=== PATIENT | female | born 1990 | race Caucasian/White ===

== ENCOUNTER → 2024-03-23 | Outpatient (CLI) | payer BC ==
[~2024-03-23] MED LIST: BCP; HYDACE5 PO; Macrobid 100 M100 MG PO; ONDA4ODT MM; PROM25 PO; Phentermine HCl30 MG; RXHYDACE PO; SULTRIDS PO; [UNRECOGNIZED DRUG - OTHER]
[2024-03-23 14:08] LABS: BASOPHILS ABSOLUTE AUTO 0.06 K/mm3 (0.00-0.23); BASOPHILS PERCENT AUTO 1 % (0-2); EOSINOPHILS PERCENT AUTO 2 % (0-6); Hematocrit 37.7 % (33.0-51.0); IMMATURE GRAN ABSOLUTE AUTO 0.04 K/mm3 (0.00-0.10); IMMATURE GRAN PERCENT AUTO 1 % (0-1); LYMPHOCYTES ABSOLUTE AUTO 3.23 K/mm3 (0.84-5.20); LYMPHOCYTES PERCENT AUTO 38 % (21-46); MONOCYTES ABSOLUTE AUTO 0.78 K/mm3 (0.16-1.47); MONOCYTES PERCENT AUTO 9 % (4-13); Mean Corpuscular HGB 30.3 pg (26.0-34.0); Mean Corpuscular HGB Conc 34.5 g/dL (31.5-36.5); Mean Corpuscular Volume 88 fL (80-100); Mean Platelet Volume 8.7 fL (9.1-12.4); NEUTROPHILS ABSOLUTE AUTO 4.15 K/mm3 (1.96-9.15); NEUTROPHILS PERCENT AUTO 49 % (41-73); Platelet Count 339 K/mm3 (150-400); RDW Coefficient Variation 12.3 % (11.7-14.2); Red Blood Cell Count 4.29 M/mm3 (3.80-5.20); White Blood Cell Count 8.46 K/mm3 (4.00-11.30)
[2024-03-23 14:25] LABS: Albumin/Globulin Ratio 1.1 (0.8-1.8); Bilirubin, Total 0.2 mg/dL (0.1-1.0); Calcium, Blood 9.6 mg/dL (8.5-10.1); Creatinine, Blood 0.93 mg/dL (0.40-1.00); Globulin, Blood 3.6 g/dL (2.2-4.0); Potassium, Blood 3.5 mmol/L (3.5-5.5); Total Protein, Blood 7.6 g/dL (6.4-8.2)
== END ==
LOC: LAB 14:03 → LAB SHORT 14:03
PROVIDERS: Physician Assistant
DX: R10.32 Left lower quadrant pain (principal)
CPT/HCPCS: 80053; 83690; 85025

== ENCOUNTER 2024-04-11 06:06 | Observation (INO) | payer BC ==
[2024-04-11] VITALS (17 sets, daily range): BP systolic 112–143; BP diastolic 71–90
[~2024-04-11] VITALS: Ht 157.5 cm; Wt 75.8 kg
[2024-04-11] MEDS ORDERED: Ondansetron HCl 2 MG / ML 2ML Vial IV PRN ×2 (06:20→08:40)
[2024-04-11 06:32] LABS: BASOPHILS ABSOLUTE AUTO 0.08 K/mm3 (0.00-0.23); BASOPHILS PERCENT AUTO 1 % (0-2); EOSINOPHILS ABSOLUTE AUTO 0.29 K/mm3 (0.00-0.68); EOSINOPHILS PERCENT AUTO 2 % (0-6); Hemoglobin 13.3 g/dL (11.5-16.0); IMMATURE GRAN ABSOLUTE AUTO 0.06 K/mm3 (0.00-0.10); IMMATURE GRAN PERCENT AUTO 0 % (0-1); LYMPHOCYTES ABSOLUTE AUTO 2.87 K/mm3 (0.84-5.20); LYMPHOCYTES PERCENT AUTO 21 % (21-46); MONOCYTES ABSOLUTE AUTO 0.86 K/mm3 (0.16-1.47); MONOCYTES PERCENT AUTO 6 % (4-13); Mean Corpuscular HGB 30.8 pg (26.0-34.0); Mean Corpuscular Volume 88 fL (80-100); Mean Platelet Volume 8.5 fL (9.1-12.4); NEUTROPHILS ABSOLUTE AUTO 9.58 K/mm3 (1.96-9.15); NEUTROPHILS PERCENT AUTO 70 % (41-73); Platelet Count 365 K/mm3 (150-400); RDW Standard Deviation 38.4 fL (35.1-46.3); Red Blood Cell Count 4.32 M/mm3 (3.80-5.20); White Blood Cell Count 13.74 K/mm3 (4.00-11.30)
[2024-04-11 06:51] LABS: Albumin, Blood 4.1 g/dL (3.4-5.0); Bilirubin, Total 0.4 mg/dL (0.1-1.0); Bun/Creatinine Ratio 25.6 (12.0-20.0); Calcium, Blood 10.9 mg/dL (8.5-10.1); Creatinine, Blood 0.78 mg/dL (0.40-1.00); Potassium, Blood 3.7 mmol/L (3.5-5.5); Total Protein, Blood 8.1 g/dL (6.4-8.2)
[2024-04-11] MEDS ORDERED: Morphine Sulfate 4 MG/1 ML Injection IV ONE (07:00)
[2024-04-11 07:21] LABS: Source, Urine Clean Catch
[2024-04-11 07:30] LABS: Bilirubin, Urine Neg (Neg); Blood, Urine 2+ (Neg); Glucose Qualitative, Urine Neg (Neg); Ketones, Urine Neg (Neg); Leukocyte Esterase, Urine Neg (Neg); Nitrite, Urine Neg (Neg); Protein, Urine Neg (Neg); Urobilinogen, Urine NORM (Normal)
[2024-04-11 07:57] LABS: Appearance, Urine Hazy (Clear); Bacteria Few /hpf; Color, Urine Yellow (P-Yellow); Squamous Epithelial Cells Few /hpf (Few); White Blood Cells, Urine 0-2 /hpf (0-5)
[2024-04-11] MEDS ORDERED: FLU VACC TS2024-25(6MOS UP)/PF 45 MCG/0.5 ML SYRINGE IM PRN (08:40)
[2024-04-11] MEDS ORDERED: Lactated Ringer's 1,000 ML IV SCH ×2 (08:40→14:45)
[2024-04-11] MEDS ORDERED: HYDROcodone 5-APAP 325 TAB PO PRN (08:40)
[2024-04-11] MEDS ORDERED: Ampicillin Sod/Sulbactam Sod 3 GM in NS 100 ML IV SCH (08:44)
[2024-04-11] MEDS ORDERED: FentaNYL Citrate 50 MCG/ML 2 ML Injection IV PRN (08:45)
--- NOTE | 2024-04-11 12:27 | NUR ---
History, Chart, Medications and Allergies reviewed before start of procedure. Pre-Op teaching done. Pt verbalizes understanding. PT BELONGINGS BAG PLACED UNDER GURNEY. PTS AT BS.
[2024-04-11] MEDS ORDERED: propofoL 20 ML IV ONE (12:48)
[2024-04-11] MEDS ORDERED: FentaNYL Citrate 50 MCG/ML 2 ML Injection ONE ×2 (12:50→15:04)
[2024-04-11] MEDS ORDERED: Bupivacaine 0.5% HCl 5 MG/ML 30MLVIAL ONE (13:09)
[2024-04-11] MEDS ORDERED: Rocuronium Bromide 10 MG/ML 5ML Injection IV ONE ×2 (13:21→13:45)
[2024-04-11] MEDS ORDERED: HYDROmorphone HCl/Pf 1MG SYR ONE (14:09)
[2024-04-11] MEDS ORDERED: Sugammadex Sodium 200 MG/2ML SDV (100 MG/ML) ONE (14:14)
--- NOTE | 2024-04-11 16:16 | NUR ---
arrival. pt arrived to unit s/p lap lia. pt groggy but reports pain tolerable, will wake and answer questions. lap sites x4 cdi with steri strips. denies nausea at this time. family at bedside. pt has call light in hand.
[2024-04-11] MEDS ORDERED: Morphine Sulfate 4 MG/1 ML Injection IV PRN (17:25)
--- NOTE | 2024-04-11 18:02 | NUR ---
NO ACUTE CHANGES SINCE ARRIVAL TO UNIT PT SWITCHED TO MORPHINE FROM FENTANYL SHE REPORTED FEELING NAUSEOUS AFTER FENTANYL. PT TOLERATING SMALL AMOUNTS OF REGULAR DIET AT THIS TIME. REMAINS VERY TIRED.
[2024-04-12 00:13] VITALS: BP 105/67
[2024-04-12 05:03] VITALS: BP 112/71
--- NOTE | 2024-04-12 05:19 | NUR ---
SHIFT SUMMARY AOX4. VSS. POD1-LAP MARLENA. x4 LAP SITES W/STERI STRIPS, C/D/I. REPORTS PAIN TO RUQ ABD TO SHOULDERS, MEDICATED 2x W/1MG IV MORPHINE-PT ABLE TO REST W/EYES CLOSED AFTER. DENIES N/V T/O SHIFT. HYPOACTIVE BT. REPORTS PASSING FLATUS. UP SBY ASSIST TO VOID. CALL LIGHT IN REACH.
[2024-04-12 07:19] VITALS: BP 105/69
[2024-04-12] MEDS ORDERED: Simethicone 80 MG Chew PO PRN (12:35)
[2024-04-12 15:12] VITALS: BP 112/74
[2024-04-12] MEDS ORDERED: HYDR1TAB94 PO (15:28)
--- NOTE | 2024-04-12 16:06 | NUR ---
DISCHARGE SUMMARY POD1 LAP MARLENA, A/OX4, VSS, TOLERATING PO, PAIN WELL MANAGED, INDEPENDENT IN THE ROOM, LAP SITES C/D/I WITH STERI STRIPS IN PLACE, ABD SOFT BUT TENDER WITH PALPATION AND NOT DISTENDED. DISCUSSED DISCHARGE INSTRUCTIONS INCLUDING HOME CARE, MEDICATIONS, AND FOLLOW UP APPOINTMENTS.
== END 2024-04-12 16:08 | disposition home or self-care (01) ==
LOC: ER 06:06 → SURS 06:07
PROVIDERS: Emergency Medicine; ADMIT Surgery
PROC: 0FT44ZZ Resection of Gallbladder, Percutaneous Endoscopic Approach (ICD-10-PCS; principal; 2024-04-11 12:00)
DX: K80.12 Calculus of gallbladder with acute and chronic cholecystitis without obstruction (principal); F32.A Depression, unspecified
CPT/HCPCS: 76705; 80053; 81001; 83690; 85025; 87086; 88304; 96365; 96375; 99285-25; A9270; G0378; J0295; J1171; J2270; J2405; J2704; J3010; J7120

== ENCOUNTER 2024-04-16 08:17 | Inpatient (IN) | payer BC ==
[~2024-04-16] VITALS: Ht 167.6 cm; Wt 81.7 kg
[~2024-04-16 08:17] MED LIST changes: +HYDR1TAB94 PO
[2024-04-16] MEDS ORDERED: Ondansetron HCl 2 MG / ML 2ML Vial IV ONE (08:55)
[2024-04-16 09:50] LABS: BASOPHILS ABSOLUTE AUTO 0.04 K/mm3 (0.00-0.23); BASOPHILS PERCENT AUTO 1 % (0-2); EOSINOPHILS ABSOLUTE AUTO 0.22 K/mm3 (0.00-0.68); EOSINOPHILS PERCENT AUTO 3 % (0-6); Hemoglobin 14.5 g/dL (11.5-16.0); IMMATURE GRAN ABSOLUTE AUTO 0.05 K/mm3 (0.00-0.10); IMMATURE GRAN PERCENT AUTO 1 % (0-1); LYMPHOCYTES ABSOLUTE AUTO 1.12 K/mm3 (0.84-5.20); LYMPHOCYTES PERCENT AUTO 14 % (21-46); MONOCYTES ABSOLUTE AUTO 0.72 K/mm3 (0.16-1.47); MONOCYTES PERCENT AUTO 9 % (4-13); Mean Corpuscular HGB 31.3 pg (26.0-34.0); Mean Corpuscular HGB Conc 36.3 g/dL (31.5-36.5); Mean Corpuscular Volume 86 fL (80-100); NEUTROPHILS ABSOLUTE AUTO 5.92 K/mm3 (1.96-9.15); NEUTROPHILS PERCENT AUTO 73 % (41-73); Platelet Count 344 K/mm3 (150-400); RDW Coefficient Variation 12.5 % (11.7-14.2); RDW Standard Deviation 38.5 fL (35.1-46.3); Red Blood Cell Count 4.63 M/mm3 (3.80-5.20); White Blood Cell Count 8.07 K/mm3 (4.00-11.30)
[2024-04-16 09:51] LABS: Albumin, Blood 4.2 g/dL (3.4-5.0); Bilirubin, Total 2.3 mg/dL (0.1-1.0); Bun/Creatinine Ratio 21.7 (12.0-20.0); Calcium, Blood 10.4 mg/dL (8.5-10.1); Creatinine, Blood 0.74 mg/dL (0.40-1.00); Globulin, Blood 4.2 g/dL (2.2-4.0); Potassium, Blood 3.9 mmol/L (3.5-5.5); Total Protein, Blood 8.4 g/dL (6.4-8.2)
[2024-04-16] MEDS ORDERED: Piperacillin/Tazobactam Sod 4.5 GM in NS 100 ML IV ONE (12:20)
[2024-04-16] MEDS ORDERED: HYDROmorphone HCl/Pf 1MG SYR IV ONE (12:55)
[2024-04-16 13:28] LABS: Source, Urine Clean Catch
[2024-04-16 13:34] LABS: Appearance, Urine Clear (Clear); Bilirubin, Urine Neg (Neg); Blood, Urine Neg (Neg); Color, Urine Yellow (P-Yellow); Glucose Qualitative, Urine Neg (Neg); Ketones, Urine Neg (Neg); Leukocyte Esterase, Urine Neg (Neg); Nitrite, Urine Neg (Neg); Protein, Urine 1+ (Neg); Urobilinogen, Urine 1+ (Normal)
[2024-04-16] MEDS ORDERED: Ondansetron HCl 2 MG / ML 2ML Vial IV PRN (13:45)
[2024-04-16] MEDS ORDERED: HYDROmorphone HCl/Pf 1MG SYR IV PRN (13:45)
[2024-04-16] MEDS ORDERED: TraZODone HCl 50 MG Tab PO PRN (13:45)
[2024-04-16] MEDS ORDERED: Naloxone HCl 0.4MG / ML 1ML Vial IV PRN (13:45)
[2024-04-16] MEDS ORDERED: OxyCODONE HCL 5 MG TAB PO PRN (13:45)
[2024-04-16] MEDS ORDERED: NS 1,000 ML IV SCH (13:45)
[2024-04-16] MEDS ORDERED: FLU VACC TS2024-25(6MOS UP)/PF 45 MCG/0.5 ML SYRINGE IM SCH (13:45)
[2024-04-16] MEDS ORDERED: DiphenhydrAMINE HCL 25 MG Cap PO PRN (13:50)
[2024-04-16 14:14] LABS: Bilirubin, Direct 1.5 mg/dL (0.0-0.3); Bilirubin, Indirect 0.8 mg/dL (0.1-0.7); Bilirubin, Total 2.3 mg/dL (0.1-1.0)
[2024-04-16] MEDS ORDERED: Piperacillin/Tazobactam Sod 4.5 GM in NS 100 ML IV SCH (18:00)
[2024-04-16 19:59] LABS: Albumin, Blood 3.5 g/dL (3.4-5.0); Albumin/Globulin Ratio 0.9 (0.8-1.8); Bilirubin, Total 1.5 mg/dL (0.1-1.0); Bun/Creatinine Ratio 19.3 (12.0-20.0); Calcium, Blood 9.1 mg/dL (8.5-10.1); Creatinine, Blood 0.67 mg/dL (0.40-1.00); Globulin, Blood 3.8 g/dL (2.2-4.0); Potassium, Blood 3.8 mmol/L (3.5-5.5); Total Protein, Blood 7.3 g/dL (6.4-8.2)
[2024-04-16 21:07] VITALS: BP 104/71
[2024-04-17] MEDS ORDERED: SPIRONOLACTONE50 MG PO (00:08)
[2024-04-17] MEDS ORDERED: HYDROCODONE-AC1 EA19 PO (00:09)
[2024-04-17] MEDS ORDERED: Adipex-P37.5 M1 PO (00:09)
[2024-04-17 03:48] VITALS: BP 100/66
[2024-04-17 04:56] LABS: BASOPHILS ABSOLUTE AUTO 0.05 K/mm3 (0.00-0.23); BASOPHILS PERCENT AUTO 1 % (0-2); EOSINOPHILS ABSOLUTE AUTO 0.52 K/mm3 (0.00-0.68); EOSINOPHILS PERCENT AUTO 6 % (0-6); Hematocrit 34.9 % (33.0-51.0); Hemoglobin 12.2 g/dL (11.5-16.0); IMMATURE GRAN ABSOLUTE AUTO 0.05 K/mm3 (0.00-0.10); IMMATURE GRAN PERCENT AUTO 1 % (0-1); LYMPHOCYTES ABSOLUTE AUTO 1.77 K/mm3 (0.84-5.20); LYMPHOCYTES PERCENT AUTO 20 % (21-46); MONOCYTES ABSOLUTE AUTO 0.73 K/mm3 (0.16-1.47); MONOCYTES PERCENT AUTO 8 % (4-13); Mean Corpuscular HGB 30.9 pg (26.0-34.0); Mean Corpuscular Volume 88 fL (80-100); Mean Platelet Volume 8.6 fL (9.1-12.4); NEUTROPHILS ABSOLUTE AUTO 5.91 K/mm3 (1.96-9.15); NEUTROPHILS PERCENT AUTO 65 % (41-73); Platelet Count 296 K/mm3 (150-400); RDW Coefficient Variation 12.6 % (11.7-14.2); RDW Standard Deviation 40.9 fL (35.1-46.3); Red Blood Cell Count 3.95 M/mm3 (3.80-5.20); White Blood Cell Count 9.03 K/mm3 (4.00-11.30)
--- NOTE | 2024-04-17 05:13 | NUR ---
2105: REC'D PT FROM ER FOR INCREASED ABDOMINAL PAIN, S/P EMERGENT CHOLECYSTECTOMY ON 04/14/09. AAOX4, USES CALL LIGHT FOR NEEDS. MINIMAL ASSIST TO BR, D/T IV POLE. TELE IN PLACE, SR IN 'S. MEDICATED WITH DILAUDID FOR ABDOMINAL PAIN PRN. DILUADID GIVEN WTH ZOFRAN FOR NAUSEA. PT REPORTS SHE CAN'T TAKE THE OXY D/T EXCESSIVE NAUSEA, EVEN WITH ZOFRAN ADMIN. TOLERATING CLEAR LIQUIDS. PLAN IS TO ADMIN IV ABX, FLUIDS AND MONITOR ABNORMAL LABS.
[2024-04-17 05:36] LABS: Albumin, Blood 3.5 g/dL (3.4-5.0); Bilirubin, Total 1.2 mg/dL (0.1-1.0); Bun/Creatinine Ratio 17.2 (12.0-20.0); Calcium, Blood 8.9 mg/dL (8.5-10.1); Creatinine, Blood 0.87 mg/dL (0.40-1.00); Globulin, Blood 3.6 g/dL (2.2-4.0); Potassium, Blood 3.4 mmol/L (3.5-5.5); Total Protein, Blood 7.1 g/dL (6.4-8.2)
[2024-04-17 07:35] VITALS: BP 96/70
[2024-04-17] MEDS ORDERED: Polyethylene Glycol 3350 17 gm PO PRN (08:55)
[2024-04-17] MEDS ORDERED: Bisacodyl 10 MG Supp PR PRN (09:00)
[2024-04-17] MEDS ORDERED: Enoxaparin 40 MG/0.4 ML SYR SC SCH (09:00)
[2024-04-17] MEDS ORDERED: Bisacodyl 10 MG Supp PR ONE (09:00)
[2024-04-17] MEDS ORDERED: Potassium Chloride 20 MEQ TabCR PO ONE (15:00)
[2024-04-17 15:33] VITALS: BP 108/67
--- NOTE | 2024-04-17 19:22 | NUR ---
SHIFT SUMMARY PATIENT COMPLAINTS OF SHARP PAIN TO RIGHT POSTERIOR LOW BACK, IV DILAUDIDD GIVEN TWICE TODAY WITH REPORTED RELIEF. IV ZOFRAN GIVEN WITH DILAUDID TO HELP WITH REFERRED NAUSEA FROM PAIN MEDS. PATIENT UP AND AMBULATING AROUND UNIT. ADVANCED DIET TOLERATED. NOW AT REGULAR DIET. ABLE TO MAKE NEEDS KNOWN CALL LIGHT IN REACH.
[2024-04-17] MEDS ORDERED: HYDROmorphone HCl/Pf 1MG SYR IV PRN (19:50)
[2024-04-17 20:49] VITALS: BP 106/74
[2024-04-18 03:28] VITALS: BP 108/72
[2024-04-18 05:14] LABS: BASOPHILS ABSOLUTE AUTO 0.06 K/mm3 (0.00-0.23); BASOPHILS PERCENT AUTO 1 % (0-2); EOSINOPHILS ABSOLUTE AUTO 0.55 K/mm3 (0.00-0.68); EOSINOPHILS PERCENT AUTO 8 % (0-6); Hematocrit 31.1 % (33.0-51.0); Hemoglobin 10.6 g/dL (11.5-16.0); IMMATURE GRAN ABSOLUTE AUTO 0.04 K/mm3 (0.00-0.10); IMMATURE GRAN PERCENT AUTO 1 % (0-1); LYMPHOCYTES ABSOLUTE AUTO 2.22 K/mm3 (0.84-5.20); LYMPHOCYTES PERCENT AUTO 30 % (21-46); MONOCYTES ABSOLUTE AUTO 0.79 K/mm3 (0.16-1.47); MONOCYTES PERCENT AUTO 11 % (4-13); Mean Corpuscular HGB 30.7 pg (26.0-34.0); Mean Corpuscular HGB Conc 34.1 g/dL (31.5-36.5); Mean Corpuscular Volume 90 fL (80-100); Mean Platelet Volume 8.9 fL (9.1-12.4); NEUTROPHILS ABSOLUTE AUTO 3.66 K/mm3 (1.96-9.15); NEUTROPHILS PERCENT AUTO 50 % (41-73); Platelet Count 257 K/mm3 (150-400); RDW Coefficient Variation 12.6 % (11.7-14.2); Red Blood Cell Count 3.45 M/mm3 (3.80-5.20); White Blood Cell Count 7.32 K/mm3 (4.00-11.30)
--- NOTE | 2024-04-18 05:15 | NUR ---
AAOX4, INDEPENDENT IN ROOM, RINGS FOR NEEDS. C/O R FLANK PAIN AND CONCERN FOR KIDNEY STONE. ADMIN 0.5MG DILAUDID, NO RELIEF. PT WANTED A CT TO MAKE SURE NO STONES. CONTACTED HOSPITALIST, NO SCAN WARRENTED AND INCREASED DILAUDID O 0.5 -1 MG Q2 PRN. EDUCATION PROIVDED AND 'S RESPONCE GIVEN TO PT. PT STILL FEELS CONSTIPATED DESPITE 3 BM AFTER MIRALAX GIVEN.
[2024-04-18 05:34] LABS: Albumin, Blood 3.1 g/dL (3.4-5.0); Bilirubin, Total 0.5 mg/dL (0.1-1.0); Bun/Creatinine Ratio 7.5 (12.0-20.0); Creatinine, Blood 0.8 mg/dL (0.40-1.00); Globulin, Blood 3.1 g/dL (2.2-4.0); Potassium, Blood 3.9 mmol/L (3.5-5.5); Total Protein, Blood 6.2 g/dL (6.4-8.2)
[2024-04-18] MEDS ORDERED: HYDROcodone 5-APAP 325 TAB PO PRN (07:50)
[2024-04-18 08:05] VITALS: BP 107/82
[2024-04-18] MEDS ORDERED: AMOCLA875 PO (12:23)
--- NOTE | 2024-04-18 13:36 | NUR ---
DISCHARGE NOTE PT COMPLETED NOON DOSE OF IV ZOSYN, DISCHARGE INSTRUCTIONS/EDUCATION WENT OVER WITH PATIENT, HARD SCRIPT FOR NARCOITC SENT HOME WITH PATIENT. IV REMOVED. TELE REMOVED. BELONGINGS GATHERED/RETURNED. FAMILY HERE TO PICK PATIETN UP. NO NEW QUESTIONS OR CONCERNS. PT PAIN WAS STARTING TO CREEP BACK UP, PO NORCO GIVEN PRIOR TO D/C
== END 2024-04-18 13:45 | disposition home or self-care (01) | DRG 446 ==
LOC: ER 08:17 → MEDS 13:41 → ERHOLD 13:41 → MEDS 21:04
PROVIDERS: Student in an Organized Health Care Education/Training Program; Surgery; ADMIT Family Medicine
DX: K83.09 Other cholangitis (principal); E87.6 Hypokalemia; Z91.030 Bee allergy status; Z90.49 Acquired absence of other specified parts of digestive tract; Z79.891 Long term (current) use of opiate analgesic
CPT/HCPCS: 36415; 74177; 74183; 76705; 80053; 81025; 82247; 82248; 83690; 85025; 93005; 93010; 94760; 96374-59; 99285-25; A9270; A9579; J1171; J1650; J2405; J2543; J7030; Q9967